=== PATIENT | female | born 1990 | race Caucasian/White ===

== ENCOUNTER 2016-10-14 11:32 | Day surgery (SDC) | payer BC ==
[~2016-10-14] VITALS: Ht 157.5 cm; Wt 97.5 kg
[2016-10-14 12:26] VITALS: Ht 157.5 cm; Wt 97.5 kg
[2016-10-14] MEDS ORDERED: IBUP200C PO (12:47)
[2016-10-14] MEDS ORDERED: MEDR150D9 IM (12:47)
[2016-10-14 12:52] VITALS: BP 111/68; PULSE 81; RESP 18
[2016-10-14] MEDS ORDERED: LIDOCAINE 2% (SDV) 5 ML INJ ONE (13:07)
[2016-10-14] MEDS ORDERED: PROPOFOL 40 ML ONE (13:07)
[2016-10-14 14:09] VITALS: BP 100/75; PULSE 80; RESP 20
--- NOTE | 2016-10-14 14:16 | GILP ---
DATE OF PROCEDURE: NAME OF PROCEDURES: Esophagogastroduodenoscopy and biopsy. SURGEON: Cammy Caal MD PREOPERATIVE DIAGNOSIS: Abdominal pain. POSTOPERATIVE DIAGNOSES 1. Gastritis with erosions. 2. Gastric mucosal biopsies were taken for Helicobacter pylori test. INDICATION FOR THE PROCEDURE: Ms. Grisel Loving is a 26-year-old female patient who had upper a bdominal pain, not responding to therapy. The patient was scheduled for endoscopic examination for f urther evaluation. The procedure and possible complications were well explained to the patient. The patient understood and consented to the procedure. DESCRIPTION OF PROCEDURE: Under the influence of anesthesia, the gastroscope was carefully introduc ed into the esophagus and under direct vision, it was advanced to the stomach and through the pyloru s into the duodenal bulb and descending duodenum. FINDINGS: ESOPHAGUS: The mucosa was normal. STOMACH: The patient had gastritis with erosions. Gastric mucosal biopsies were taken for H. pylor i test. DUODENUM: Normal. The patient tolerated the procedure very well and there was no complication from the procedure. At the end of the procedure, she was awake with stable vital signs and she was discharged home to the [facility] of her family. IMPRESSION: 1. Gastritis with erosions. 2. Gastric mucosal biopsies were taken for Helicobacter pylori test. PLAN: 1. Nexium 24 hours 22.3 mg p.o. q.a.m. 2. Await H. pylori test report. Dictated By: CAMMY BARRIGA/BOB Conf#: [id number] DID#: [id number]
== END 2016-10-14 14:52 | disposition home or self-care (01) ==
LOC: GIL 11:32
PROVIDERS: ATTEND Internal Medicine Gastroenterology
DX: K29.60 Other gastritis without bleeding (principal); E66.9 Obesity, unspecified; Z68.39 Body mass index [BMI] 39.0-39.9, adult
CPT/HCPCS: 43239; 84703; 87081; Z7610